=== PATIENT | male | born 2000 | race Caucasian/White ===

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

== ENCOUNTER 2020-04-29 10:53 | Emergency (ER) | payer MEDICAID ==
[~2020-04-29] VITALS: Ht 165.1 cm; Wt 70.3 kg
[2020-04-29 11:00] VITALS: BP_SYST 124
--- NOTE | 2020-04-29 11:00 | NUR ---
Patient to ER bed 07 to gown for evaluation. Side rails up.
--- NOTE | 2020-04-29 11:05 | NUR ---
Pt walked in to ER with c/o left elbow pain. Reports injuring it at work 2 days ago, was sent to employer's clinic, x-rays were negative and he was placed in a sling. Currently taking nsaid prescribed by clinic and it is uneffective for pain. Rates pain 9/10. V/S stable, pt is afebrile. Currently sitting at bedside, will continue to monitor.
--- NOTE | 2020-04-29 11:10 | NUR ---
ER Dr. Carney at bedside examining patient.
[2020-04-29] MEDS ORDERED: MORPHINE 4 MG/ML INJ. SYRINGE IM ONE (11:15)
[2020-04-29 11:56] VITALS: BP_SYST 124
--- NOTE | 2020-04-29 11:57 | NUR ---
Patient given written and verbal discharge instructions and verbalizes understanding. ER MD discussed with patient the results and treatment provided. Patient in stable condition. ID arm band removed. Rx of [place] given. Patient educated on pain management and to follow up with PMD. Pain Scale 0. Opportunity for questions provided and answered. Medication side effect fact sheet provided.
== END 2020-04-29 11:57 | disposition home or self-care (01) ==
LOC: SED 10:53
DX: S50.02XA Contusion of left elbow, initial encounter (principal); X58.XXXA Exposure to other specified factors, initial encounter; Y93.89 Activity, other specified; Y92.89 Other specified places as the place of occurrence of the external cause; Y99.8 Other external cause status
CPT/HCPCS: 96372; 99283; J2270

== ENCOUNTER 2020-11-21 14:12 | Emergency (ER) | payer MEDICAID ==
[~2020-11-21] VITALS: Ht 165.1 cm; Wt 77.1 kg
[2020-11-21 14:12] VITALS: BP_SYST 152
[2020-11-21] MEDS ORDERED: KETOROLAC TROMETHAMINE 30 MG VIAL IM ONE (14:45)
[2020-11-21] MEDS ORDERED: DIAZEPAM 5 MG TABLET (VALIUM) PO ONE (14:45)
[2020-11-21] MEDS ORDERED: NAPR-1172 PO (15:11)
[2020-11-21] MEDS ORDERED: DIAZ5TAB PO (15:11)
[2020-11-21 15:19] VITALS: BP_SYST 152
== END 2020-11-21 15:20 | disposition home or self-care (01) ==
LOC: SED 14:12
DX: S46.911A Strain of unspecified muscle, fascia and tendon at shoulder and upper arm level, right arm, initial encounter (principal); X50.3XXA Overexertion from repetitive movements, initial encounter; Y93.72 Activity, wrestling; Y92.89 Other specified places as the place of occurrence of the external cause; Y99.8 Other external cause status
CPT/HCPCS: 73030; 96372; 99283; J1885

== ENCOUNTER 2021-07-06 14:18 | Emergency (ER) | payer MEDICAID, SELFPAY ==
[~2021-07-06] VITALS: Ht 165.1 cm; Wt 77.1 kg
[~2021-07-06 14:18] MED LIST: DIAZ5TAB PO; NAPR-1172 PO
[2021-07-06 14:49] VITALS: BP_SYST 129
--- NOTE | 2021-07-06 14:56 | NUR ---
Triage put in by Mariam Gonzáles
--- NOTE | 2021-07-06 17:25 | NUR ---
went to [facility] to revaluate pt. not there
--- NOTE | 2021-07-06 17:30 | NUR ---
pt. left without being seen
[2021-07-07] MEDS ORDERED: IBUP-1969 PO (09:22)
== END 2021-07-06 17:30 | disposition left against medical advice (07) ==
LOC: SED 14:18
DX: R07.1 Chest pain on breathing (principal); Z53.21 Procedure and treatment not carried out due to patient leaving prior to being seen by health care provider
CPT/HCPCS: 71045

== ENCOUNTER 2021-07-07 09:05 | Emergency (ER) | payer MEDICAID, SELFPAY ==
[~2021-07-07] VITALS: Ht 165.1 cm; Wt 77.1 kg
[2021-07-07 09:05] VITALS: BP_SYST 140
--- NOTE | 2021-07-07 09:05 | NUR ---
PT BROUGHT BACK TO BED #4 AND TRIAGED. WILL ASSUME CARE
--- NOTE | 2021-07-07 09:05 | NUR ---
PT STATES RIGHT RIB PAIN, DENIES ANY TRAUMA OR INJURY
--- NOTE | 2021-07-07 09:10 | NUR ---
PT STATES RIGHT SIDED RIB PAIN. WAS SEEN HERE LAST NIGHT FOR SAME BUT LEFT DUE TO LONG WAIT. PT DENIES ANY INJURY OR TRAUMA.
--- NOTE | 2021-07-07 09:11 | NUR ---
DR BRAN AT BEDSIDE FOR EVALUATION
[2021-07-07] MEDS ORDERED: IBUP-1969 PO (09:22)
--- NOTE | 2021-07-07 09:29 | NUR ---
Patient given written and verbal discharge instructions and verbalizes understanding. ER MD discussed with patient the results and treatment provided. Patient in stable condition. ID arm band removed. Rx of MOTRIN given. Patient educated on pain management and to follow up with PMD. Pain Scale 0/10. Opportunity for questions provided and answered. Medication side effect fact sheet provided.
== END 2021-07-07 09:29 | disposition home or self-care (01) ==
LOC: SED 09:05
DX: R07.1 Chest pain on breathing (principal); Z79.899 Other long term (current) drug therapy
CPT/HCPCS: 99282

== ENCOUNTER 2023-02-07 21:46 | Emergency (ER) | payer MEDICAID, OTHER ==
[~2023-02-07] VITALS: Ht 165.1 cm; Wt 75.7 kg
[~2023-02-07 21:46] MED LIST changes: +IBUP-1969 PO
[2023-02-07 22:20] VITALS: BP_SYST 117; PULSE 95; RESP 16; TEMP 97.9; O2SAT 98
[2023-02-08] MEDS ORDERED: KETOROLAC TROMETHAMINE 60 MG/2 ML VIAL IM ONE (01:00)
[2023-02-08] MEDS ORDERED: NAPR-690 PO (01:27)
[2023-02-08] MEDS ORDERED: ALLO100T91 PO (01:27)
[2023-02-08] MEDS ORDERED: COLC0.6T67 PO (01:27)
[2023-02-08 02:17] VITALS: BP_SYST 134; PULSE 76; RESP 15; TEMP 97.4; O2SAT 99
== END 2023-02-08 02:17 | disposition home or self-care (01) ==
LOC: SED 21:46
DX: M10.9 Gout, unspecified (principal); M79.671 Pain in right foot; Z79.899 Other long term (current) drug therapy
CPT/HCPCS: 99283; 96372; J1885

== ENCOUNTER 2023-03-26 16:53 | Emergency (ER) | payer MEDICAID ==
[~2023-03-26] VITALS: Ht 162.6 cm; Wt 74.8 kg
[~2023-03-26 16:53] MED LIST changes: +ALLO100T91 PO; +COLC0.6T67 PO; +NAPR-690 PO
[2023-03-26 16:57] VITALS: BP_SYST 150; PULSE 103; RESP 16; TEMP 98.3; O2SAT 100
[2023-03-26 17:39] LABS: BASOPHILS # (AUTO) 0.1 K/uL (0.0-0.2); BASOPHILS % (AUTO) 0.4 % (0.0-2.0); EOSINOPHILS # (AUTO) 0.1 K/uL (0.0-0.4); EOSINOPHILS % (AUTO) 0.4 % (0.0-4.0); HEMATOCRIT 47.2 % (36-54); HEMOGLOBIN 16.2 g/dL (14.0-18.0); LYMPHOCYTES # (AUTO) 3.3 K/uL (1.0-5.5); LYMPHOCYTES % (AUTO) 22.5 % (20.5-51.5); MEAN CORPUSCULAR HEMOGLOBIN 31 pg (27-31); MEAN CORPUSCULAR HGB CONC 34 % (32-36); MEAN CORPUSCULAR VOLUME 89 fL (79.0-98.0); MONOCYTES # (AUTO) 1.3 K/uL (0.0-1.0); MONOCYTES % (AUTO) 9.2 % (1.7-9.3); NEUTROPHILS # (AUTO) 9.7 K/uL (1.8-7.7); NEUTROPHILS % (AUTO) 67.5 % (40.0-70.0); PLATELET COUNT (AUTO) 150 K/uL (130-430); RED BLOOD CELL COUNT(AUTO) 5.31 MIL/uL (4.2-6.2); RED CELL DISTRIBUTION WIDTH 13.5 % (9.0-15.0); WHITE BLOOD COUNT (AUTO) 14.4 K/uL (4.8-10.8)
[2023-03-26 18:12] LABS: ANION GAP 12 (5-15); CALCIUM 9.2 mg/dL (8.4-11.0); CARBON DIOXIDE 27 mmol/L (23-29); CHLORIDE 100 mmol/L (98-107); CREATININE 1.09 mg/dL (0.55-1.30); GFR AFRICAN AMERICAN 108 mL/min (>90); GLUCOSE 100 mg/dL (74-106); POTASSIUM 3.4 mmol/L (3.5-5.1); SODIUM SERUM 139 mmol/L (136-145); UREA NITROGEN, BLOOD 12 mg/dL (8-21)
[2023-03-26 18:16] LABS: GFR NON AFRICAN-AMERICAN 89 mL/min (>90)
[2023-03-26 18:22] LABS: ALANINE AMINOTRANSFERASE 23 U/L (12-78); ALBUMIN 4.6 g/dL (3.4-4.8); AMYLASE 87 U/L (0-100); LIPASE 118 U/L (73-393); TOTAL BILIRUBIN 4.3 mg/dL (0.0-1.0); TOTAL PROTEIN, SERUM 7.9 g/dL (6.4-8.3)
[2023-03-26 18:23] LABS: ALCOHOL, BLOOD < 3 mg/dL (<10)
[2023-03-26 18:59] LABS: ASPARTATE AMINOTRANSFERASE 28 U/L (10-37)
[2023-03-26 19:25] LABS: ACETONE, SERUM NEGATIVE (NEGATIVE)
[2023-03-26] MEDS ORDERED: OMEPRAZOLE Non-Formulary 20 MG CAPSULE.DR PO ONE (19:45)
[2023-03-26] MEDS ORDERED: PANTOPRAZOLE SODIUM 40 MG TAB PO ONE (20:00)
[2023-03-26] MEDS ORDERED: OMEP20CA15 PO (20:17)
[2023-03-26 21:40] VITALS: BP_SYST 125; PULSE 73; RESP 17; TEMP 97.9; O2SAT 100
== END 2023-03-26 21:40 | disposition home or self-care (01) ==
LOC: SED 16:53
DX: K20.90 Esophagitis, unspecified without bleeding (principal); M54.6 Pain in thoracic spine; R10.13 Epigastric pain; R07.89 Other chest pain; Z79.899 Other long term (current) drug therapy
CPT/HCPCS: 99285; 76705; 71045; 80053; 82009; 82150; 83690; 85025; 84484; 36415; 93005; 83605; G0482

== ENCOUNTER 2023-06-19 10:41 | Emergency (ER) | payer MEDICAID ==
[~2023-06-19 10:41] MED LIST changes: +OMEP20CA15 PO
[2023-06-19 11:00] VITALS: BP_SYST 124; PULSE 80; RESP 18; TEMP 98; O2SAT 98
[2023-06-19] MEDS ORDERED: predniSONE 20 MG TABLET PO ONE (11:30)
[2023-06-19] MEDS ORDERED: PRED20TA PO (11:36)
[2023-06-19] MEDS ORDERED: INDO-12 PO (11:36)
[2023-06-19 11:54] VITALS: BP_SYST 127; PULSE 83; RESP 18; TEMP 97.7; O2SAT 99
== END 2023-06-19 11:54 | disposition home or self-care (01) ==
LOC: SED 10:41
DX: M10.9 Gout, unspecified (principal); Z79.899 Other long term (current) drug therapy
CPT/HCPCS: 99283; J7512